=== PATIENT | male | born 1945 | race Caucasian/White ===

== ENCOUNTER 2017-10-26 10:46 | Emergency (ER) | payer OTHER, MEDICAID ==
[~2017-10-26] VITALS: Ht 177.8 cm; Wt 62.1 kg
[2017-10-26 10:56] VITALS: Ht 177.8 cm; Wt 62.1 kg
[2017-10-26 13:08] VITALS: BP 105/69
== END 2017-10-26 13:08 | disposition home or self-care (01) ==
LOC: ED 10:46
DX: L03.211 Cellulitis of face (principal); Z88.0 Allergy status to penicillin

== ENCOUNTER 2018-04-26 09:41 | Emergency (ER) | payer OTHER, MEDICAID ==
[2018-04-26 09:46] VITALS: BP 108/72
== END 2018-04-26 10:28 | disposition home or self-care (01) ==
LOC: ED 09:41
DX: J01.90 Acute sinusitis, unspecified (principal); Z88.0 Allergy status to penicillin

== ENCOUNTER 2019-01-18 13:15 | Emergency (ER) | payer OTHER, MEDICAID ==
[~2019-01-18] VITALS: Ht 177.8 cm; Wt 59.9 kg
[2019-01-18 13:27] VITALS: Ht 177.8 cm; Wt 59.9 kg
[2019-01-18 13:51] LABS: BASOPHIL % 0.3 % (0-2); PLATELET COUNT 251 x10^3mcL (130-400)
[2019-01-18 14:22] LABS: CALCIUM 8.1 mg/dL (8.5-10.1); CARBON DIOXIDE 25.8 mmol/L (21-32); CHLORIDE SERUM 104 mmol/L (98-107); GLUCOSE SERUM 104 mg/dL (74-106); POTASSIUM SERUM 3.7 mmol/L (3.5-5.1); SODIUM SERUM 138 mmol/L (136-145)
[2019-01-18 14:31] LABS: ALBUMIN 3.4 g/dL (3.4-5.0); ALKALINE PHOSPHATASE 55 U/L (46-116); ALT/SGPT 15 U/L (16-63); AST/SGOT 23 U/L (15-37); BILIRUBIN TOTAL 0.4 mg/dL (0.20-1.00); TOTAL PROTEIN, SERUM 6.6 g/dL (6.4-8.2)
[2019-01-18 15:30] VITALS: BP 116/62
== END 2019-01-18 15:30 | disposition home or self-care (01) ==
LOC: ED 13:15
DX: K40.90 Unilateral inguinal hernia, without obstruction or gangrene, not specified as recurrent (principal); J32.9 Chronic sinusitis, unspecified; Z88.0 Allergy status to penicillin
CPT/HCPCS: 36415

== ENCOUNTER 2019-01-23 15:37 | Emergency (ER) | payer OTHER, MEDICAID ==
[~2019-01-23] VITALS: Ht 177.8 cm; Wt 57.6 kg
[2019-01-23 16:01] VITALS: BP 106/72; Ht 177.8 cm; Wt 57.6 kg
== END 2019-01-23 19:20 | disposition left against medical advice (07) ==
LOC: ED 15:37
DX: Z53.21 Procedure and treatment not carried out due to patient leaving prior to being seen by health care provider (principal)

== ENCOUNTER 2019-12-03 13:56 | Emergency (ER) | payer OTHER, MEDICAID ==
[~2019-12-03] VITALS: Ht 177.8 cm; Wt 54.4 kg
[~2019-12-03 13:56] MED LIST: AUGMENTIN1 TA1 PO; TYL325 PO
[2019-12-03 14:06] VITALS: Ht 177.8 cm; Wt 54.4 kg
[2019-12-03 15:48] VITALS: BP 100/57
== END 2019-12-03 15:48 | disposition home or self-care (01) ==
LOC: ED 13:56
DX: S31.119D Laceration without foreign body of abdominal wall, unspecified quadrant without penetration into peritoneal cavity, subsequent encounter (principal); Z88.0 Allergy status to penicillin; X58.XXXD Exposure to other specified factors, subsequent encounter

== ENCOUNTER 2020-01-03 15:59 | Emergency (ER) | payer OTHER, MEDICAID ==
[~2020-01-03] VITALS: Ht 175.3 cm; Wt 54.4 kg
[2020-01-03 16:07] VITALS: Ht 175.3 cm; Wt 54.4 kg
[2020-01-03 18:10] LABS: microscopic required? NO
[2020-01-03 18:25] LABS: BASOPHIL % 0.3 % (0-2); PLATELET COUNT 274 x10^3mcL (130-400); RED CELL DISTRIBUTION WIDTH 14.4 % (11.5-14.5)
[2020-01-03 18:27] LABS: urine erythrocyte NEGATIVE (NEGATIVE)
[2020-01-03 18:40] LABS: CALCIUM 9.4 mg/dL (8.5-10.1); CHLORIDE SERUM 98 mmol/L (98-107); GLUCOSE SERUM 87 mg/dL (74-106); POTASSIUM SERUM 4.1 mmol/L (3.5-5.1); SODIUM SERUM 132 mmol/L (136-145)
[2020-01-03 18:44] LABS: ALBUMIN 3.8 g/dL (3.4-5.0); ALKALINE PHOSPHATASE 61 U/L (46-116); ALT/SGPT 12 U/L (16-63); AST/SGOT 14 U/L (15-37); BILIRUBIN TOTAL 0.6 mg/dL (0.20-1.00); MAGNESIUM 2.1 mg/dL (1.8-2.4); TOTAL PROTEIN, SERUM 7.1 g/dL (6.4-8.2)
[2020-01-03 18:49] LABS: T3 TOTAL 1.16 ng/mL
[2020-01-03 18:52] LABS: FREE T4 1.3 ng/dL (0.76-1.46); FREE THYROXINE INDEX 3.4 ug/dL (1.4-4.5); T4(THYROXINE) 9.5 ug/dL (4.7-13.3)
[2020-01-03 19:41] VITALS: BP 123/60
== END 2020-01-03 19:41 | disposition home or self-care (01) ==
LOC: ED 15:59
PROVIDERS: Emergency Medicine
DX: R53.1 Weakness (principal); Z88.0 Allergy status to penicillin; Z98.890 Other specified postprocedural states
CPT/HCPCS: 82962; 84439